=== PATIENT | male | born 1935 | race Caucasian/White ===

== ENCOUNTER 2017-07-13 11:10 | Outpatient (CLI) | payer OTHER ==
--- NOTE | 2017-07-13 12:23 | DI ---
Exam: Three x-rays of the chest. Comparison: None available. Reason for exam: Wheezing. FINDINGS: No pneumothorax, pleural effusion, or focal consolidation. There are increased interstiti al lung markings seen throughout the lung parenchyma. 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 The cardiac silhouette is prominent in size. 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 Impression: 1. Increased interstitial lung markings can be seen with edema and inflammation. No focal airspace c onsolidation is seen. 2. Chronic-appearing compression deformities in the thoracic spine.
== END 2017-07-13 11:11 | disposition home or self-care (01) ==
LOC: RAD 11:10
PROVIDERS: ATTEND Family Medicine
DX: R06.2 Wheezing (principal)

== ENCOUNTER 2018-10-24 06:09 | Day surgery (SDC) ==
[2018-10-24] MEDS: TETRACAINE 0.5% UNIT-DOSE OP PRN ×2 (06:20→07:00)
[2018-10-24] MEDS: BETADINE OPTH PREP OP PRN ×2 (06:20→07:00)
[2018-10-24] MEDS: CYCLOGYL 2% OPTH OP PRN ×3 (06:21→06:31)
[2018-10-24] MEDS ORDERED: LIDOCAINE 1% 20 ML MDV ID STA (06:39)
[2018-10-24] MEDS ORDERED: ZOFRAN 4 MG/2 ML IVP ONE (06:39)
[2018-10-24 06:46] VITALS: TEMP 98.3
[2018-10-24] MEDS: LIDOCAINE 1%/PHENYLEPHRINE 1.5% BSS (SURGERY) INTRAOCULA ONE ×2 (07:18→07:29)
[2018-10-24] MEDS: DEX-MOXI-KETOR OPTH INJ 1/0.5/0.4 MG/ML IO ONE ×2 (07:19→07:29)
[2018-10-24] MEDS: BSS WITH EPINEPHRINE OP ONE ×2 (07:19→07:29)
[2018-10-24] MEDS ORDERED: TORADOL ONE (07:25)
[2018-10-24] MEDS ORDERED: DECADRON 4 MG/ML SDV ONE (07:25)
[2018-10-24] MEDS ORDERED: SUBLIMAZE ONE (07:25)
[2018-10-24] MEDS ORDERED: VERSED ONE (07:25)
[2018-10-24] MEDS ORDERED: ZOFRAN 4 MG/2 ML ONE (07:25)
[2018-10-26 09:08] VITALS: BP 143/78
== END 2018-10-24 08:30 | disposition home or self-care (01) ==
LOC: SURG 06:09
PROVIDERS: ATTEND Ophthalmology
DX: H25.11 Age-related nuclear cataract, right eye (principal)